=== PATIENT | female | born 1965 | race Caucasian/White ===

== ENCOUNTER 2019-09-17 08:12 | Outpatient (CLI) | payer OTHER, SELFPAY ==
[2019-09-17 08:39] LABS: Alanine Aminotransferase 16 U/L (4-35); Alkaline Phosphatase 58 U/L (38-126); Aspartate Amino Transferase 27 U/L (14-36); Bilirubin,Total 0.5 mg/dL (0.2-1.3); Blood Urea Nitrogen 15 mg/dL (7-17); Calcium 9.2 mg/dL (8.4-10.2); Carbon Dioxide 29 mmol/L (22-30); Chloride 107 mmol/L (98-107); Estimated Glomerular Filt Rate > 60; Glucose 98 mg/dL (65-105); Potassium 4.1 mmol/L (3.4-5.0); Sodium 139 mmol/L (137-145)
[2019-09-17 09:24] LABS: Vitamin D 25 Hydroxy 66.7 ng/mL
== END 2019-09-17 08:13 | disposition home or self-care (01) ==
PROVIDERS: PCP Emergency Medicine; Visit Provider Emergency Medicine
DX: E55.9 Vitamin D deficiency, unspecified (principal); I10 Essential (primary) hypertension
CPT/HCPCS: 36415; 80053; 82306

== ENCOUNTER 2020-03-11 10:38 | Outpatient (CLI) | payer OTHER, SELFPAY ==
--- NOTE | ~2020-03-11 | US_ITS ---
EXAMINATION: US pelvic complete w TV DATE: 03/11/2020 11:29 INDICATION: Postmenopausal bleeding TECHNIQUE: Multiple transabdominal and endovaginal sonographic images of the pelvis were obtained. COMPARISON: 06/07/2011 FINDINGS: The retroflexed uterus measures 9.0 x 4.4 x 6.0 cm. The endometrial complex measures 3-4 mm in thick ness. The right ovary measures 2.5 x 1.5 x 1.4 cm with arterial vascular flow identified on color Dop pler. Complex fluid collection measuring approximately 4.1 x 2.7 x 2.6 cm at the left adnexal region with separate anechoic region by septations measuring up to 2 mm. Discrete left ovary is no t identified. There is small amount of free fluid in the cul-de-sac and left adnexal region. IMPRESSION: 1. Complex cystic lesion at the left adnexa likely representing a hydrosalpinx however differential w ould include cystic ovarian neoplasm either benign or malignant. Recommend pre and postcontrast MRI f or further evaluation. 2. Endometrial complex measures 3-4 mm which is within normal limits. 2. Small amount of nonspecific free fluid in the cul-de-sac and left adnexal region. Reviewed, dictated and finalized at location B. IMPRESSION: 1. Complex cystic lesion at the left adnexa likely representing a hydrosalpinx however differential would include cystic ovarian neoplasm either benign or mal ignant. Recommend pre and postcontrast MRI for further evaluation. 2. Endometrial complex measures 3-4 mm which is within normal limits. 2. Small amount of nonspecific free fluid in the cul-de-sac and left adnexal re gion.
== END 2020-03-11 10:39 | disposition home or self-care (01) ==
PROVIDERS: PCP Emergency Medicine; Visit Provider Obstetrics & Gynecology
DX: N95.0 Postmenopausal bleeding (principal)
CPT/HCPCS: 76830; 76856

== ENCOUNTER 2020-03-25 14:35 | Outpatient (CLI) | payer OTHER, SELFPAY ==
[2020-03-28 05:10] LABS: CA-125 8 U/mL (<35)
== END 2020-03-25 14:36 | disposition home or self-care (01) ==
PROVIDERS: PCP Emergency Medicine; Visit Provider Obstetrics & Gynecology
DX: N94.9 Unspecified condition associated with female genital organs and menstrual cycle (principal)
CPT/HCPCS: 36415; 86304

== ENCOUNTER 2020-04-10 10:02 | Outpatient (CLI) | payer OTHER, SELFPAY ==
--- NOTE | ~2020-04-10 | MM_ITS ---
EXAMINATION: MM screening kathy BI w darcie HISTORY: Screening mammogram, family history of breast cancer in her sister. TECHNIQUE: Craniocaudal and mediolateral oblique 3-D tomosynthesis images were obtained and synthetic 2-D images were generated. CAD analysis was submitted and interpreted. COMPARISON: 04/04/2019, 03/27/2018, 03/24/2017 BREAST PARENCHYMAL COMPOSITION: The breasts are heterogeneously dense, which may obscure small masses . FINDINGS: There is no evidence of suspicious mass, calcification, or architectural distortion to sugg est malignancy in either breast. There has been no suspicious interval change. IMPRESSION: 1. No mammographic evidence of malignancy. 2. Recommend routine screening mammography in one year. BI-RADS Category 1: Negative Reviewed, dictated and finalized at location A. I CUTTER
== END 2020-04-10 10:03 | disposition home or self-care (01) ==
LOC: ANHIMG 10:04
PROVIDERS: PCP Emergency Medicine; Visit Provider Obstetrics & Gynecology
DX: Z12.31 Encounter for screening mammogram for malignant neoplasm of breast (principal)
CPT/HCPCS: 77063; 77067

== ENCOUNTER 2020-06-16 11:01 | Outpatient (CLI) | payer OTHER, SELFPAY ==
--- NOTE | ~2020-06-16 | US_ITS ---
EXAMINATION: US pelvic complete w TV EXAM DATE: 06/16/2020 11:44 INDICATION: N94.9 - Unspecified condition associated with female genital organs and menstrual cycle. Postmenopausal. TECHNIQUE: Pelvic transabdominal and transvaginal sonogram was performed. There are multiple graysca le and Doppler images available for interpretation. Comparison is made to prior examination from 02/26. FINDINGS: Uterus measures about cm, is retroverted with hypoechoic mass measuring 5 cm. In the lowe r urine segmental or cervical region there is hypoechoic masslike region measuring up to 4 cm, could be a fibroid. Endometrial stripe measures 5 mm, within normal limits. There is no free pelvic fluid. Right adnexa: The ovary measures 3.2 x 2.8 x 1.5 cm and is morphologically normal. Ovarian vascular f low confirmed. Left adnexa: There is complex cystic left adnexal region mass measuring up to about 5 cm, but difficu lt to measure due to shape. There are some layering protein suspected within this. Some consideration s include hematosalpinx or endometrioma. Ovarian cancer not excludable. This does not appear signific antly changed. IMPRESSION: 1. Persistent complex cystic left adnexal mass like region. 2. The lower uterine segment/cervical solid mass most likely fibroid. 3. Consider MRI pelvis without and with contrast for further evaluation. Reviewed, dictated and finalized at location A. ETIC COACH
== END 2020-06-16 11:02 | disposition home or self-care (01) ==
PROVIDERS: PCP Emergency Medicine; Visit Provider Obstetrics & Gynecology
DX: R19.09 Other intra-abdominal and pelvic swelling, mass and lump (principal); N85.8 Other specified noninflammatory disorders of uterus
CPT/HCPCS: 76830; 76856

== ENCOUNTER → 2020-07-08 07:54 | Outpatient (CLI) | payer OTHER, SELFPAY ==
--- NOTE | ~2020-07-08 | MR_ITS ---
EXAMINATION: MR pelvis wo/w con INDICATION: Pelvic swelling, mass, and lump TECHNIQUE: Coronal SSFSE ARC, Coronal, Axial, and Sagittal T2 FRFSE small [id number], Coronal 2D F IESTA FatSat, Axial SSFSE BH ARC, Axial 3D DualEcho BH, Axial STIR, Axial DWI b=500, pre and dynamic postcontrast Axial LAVA ARC COMPARISON: Ultrasound, 06/16/2020 CONTRAST: Multihance, 10 cc FINDINGS: There is a 1.3 cm T1 hyperintense, nonenhancing mass of the left adnexa, consistent with a hemorrhagic cyst. A small amount of fluid is present in the cul-de-sac and left adnexa with some locu lations seen. There is no wall enhancement of the loculations. There is a 5.0 x 4.1 cm heterogeneous enhancing mass involving the cervical segment of the uterus to the left of midline which displaces th e endocervical canal to the right. There are no pathologically enlarged pelvic lymph nodes. No dilate d loops of bowel are evident. The visualized osseous structures are unremarkable. IMPRESSION: 1. 1.3 cm hemorrhagic cyst of the left ovary. No suspicious adnexal mass identified. 2. Small amount of loculated fluid in the cul-de-sac and left adnexa. 3. Large fibroid of the cervical segment of the uterus displacing the endocervical canal to the right . Reviewed, dictated and finalized at location A. 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 1.3 cm hemorrhagic cyst of the left ovary. No suspicious adnexal mass identi fied. 2. Small amount of loculated fluid in the cul-de-sac and left adnexa. 3. Large fibroid of the cervical segment of the uterus displacing the endocervi sam canal to the right.
[2020-07-08 08:18] LABS: Estimated Glomerular Filt Rate 58
== END ==
PROVIDERS: Visit Provider Obstetrics & Gynecology
DX: R19.00 Intra-abdominal and pelvic swelling, mass and lump, unspecified site (principal); N83.202 Unspecified ovarian cyst, left side; D25.9 Leiomyoma of uterus, unspecified
CPT/HCPCS: 72197; A9577

== ENCOUNTER 2020-11-17 11:48 | Emergency (ER) | payer OTHER, SELFPAY ==
--- NOTE | ~2020-11-17 | XR_ITS ---
EXAMINATION: XR ankle LT min 3V DATE: 11/17/2020 12:15 INDICATION: Lateral left ankle pain and swelling post fall TECHNIQUE: Anteroposterior, oblique, mortise, and lateral views of the left ankle were obtained. COMPARISON: None. FINDINGS: Alignment is normal. No fracture. Joint spaces are well maintained. Small plantar calcaneal spur. Pr ominent soft tissue swelling about the lateral malleolus. There is also no ankle joint effusion. IMPRESSION: 1. Left ankle joint effusion and lateral sided soft tissue swelling. No acute osseous abnormality. Reviewed, dictated and finalized at location A. IMPRESSION: 1. Left ankle joint effusion and lateral sided soft tissue swelling. No acute o sseous abnormality.
--- NOTE | ~2020-11-17 | XR_ITS ---
EXAMINATION: XR elbow LT min 3V DATE: 11/17/2020 12:15 INDICATION: Nerve pain and tingling at the medial aspect of the distal left humerus. TECHNIQUE: Anteroposterior, two oblique and lateral views of the left elbow were obtained. COMPARISON: None. FINDINGS: Alignment is normal. No fracture identified. Joint spaces are relatively preserved. There are appears be a left elbow joint effusion with anterior sail sign resulting from displacement of the anterior f at pad. No displacement of the posterior fat pad. Soft tissues are otherwise unremarkable. IMPRESSION: 1. Left elbow joint effusion. No evident osseous abnormality. Reviewed, dictated and finalized at location A.
[2020-11-17 11:55] VITALS: BP 148/80; PULSE 85; RESP 16; TEMP 37.8; O2SAT 100
--- NOTE | 2020-11-17 11:57 | WC.ED.TRAUMA ---
HPI - Trauma General Chief Complaint: Extremity Injury, Lower Stated Complaint: lt ankle/lt arm injury Time Seen by Provider: 11/17/20 11:53 Source: patient and RN notes reviewed Mode of arrival: wheelchair History of Present Illness HPI narrative: This is a 54-year-old female that presented to urgent care today with complaints of left ankle pain and left elbow pain status post fall. According to patient she was sitting on the ledge and fell on the left side her body afterwards she started feeling pain to her upper extremity that she describes as a nerve pain. She also notes that her left ankle became swollen and she was unable to bear weight so it. She noted that while she was at home she did ice elevate and take pain medication which did not relieve her symptoms. The patient denies SOB, CP, palpitation, extremity numbness, lightheadedness, dizziness, constipation, diarrhea, chills, or fever. MD complaint: fall (Left lower extremity and upper extremity), injury (Status post fall) and pain Related Data Allergies Allergy/AdvReac Type Severity Reaction Status Date / Time amoxicillin Allergy Unknown Hives Verified 09/01/20 09:02 sulfamethizole Allergy Unknown Hives Verified 09/01/20 09:02 trimethoprim Allergy Unknown Unknown Verified 09/01/20 09:02 Review of Systems Review of Systems: Narrative: A 14 organ system Review of Systems was performed and pertinent positives included in the HPI, otherwise remaining ROS is negative. [facility] Past Medical History Medical History (Updated 11/17/20 @ 12:26 by KALA Oconnor) Hypertension Menopausal state Family History Family History Father Family history of premature coronary heart disease Hypertension, Onset Age: 60 Family history of coronary artery disease, Onset Age: 60 Patient's father is Acute myocardial infarction, Onset Age: 60 Mother Hypertension Family history of osteoporosis Grandparent Family history of coronary artery disease Sibling Family history of malignant neoplasm of breast in first degree relative Family history of osteoporosis Other Asthma Family history of arthritis Family history of thyroid disease Social History Social History Smoking status: Former smoker Second hand tobacco smoke exposure: No Alcohol intake: current Substance use: never Substance use type: does not use Exam Narrative: Exam Narrative: GENERAL: This is a well-nourished, well-developed patient, in no apparent distress. HEAD: normocephalic, atraumatic. EYES: PERRL. Sclera clear/white. Vision is grossly intact. EARS: External ears normal, auditory canals clear and without drainage, TMs normal without perforation. Hearing grossly intact. NOSE: External nose normal with no obvious nasal discharge, nares without redness, no rhinorrhea. THROAT: Mucous membranes moist, posterior pharynx clear. NECK: Neck supple, non-tender without lymphadenopathy, masses or thyromegaly. CARDIOVASCULAR: Regular rate and rhythm without murmurs, gallops, or rubs. RESPIRATORY: Clear to auscultation. Breath sounds equal bilaterally. No wheezes, rales, or rhonchi. GASTROINTESTINAL: Abdomen soft, non-tender, nondistended. Bowel sounds are active. No hepato-splenomegaly, or palpable masses. No guarding. SKIN: warm, intact with no suspicious lesions or rash, good texture and turgor. NEURO: awake, alert, and oriented to person, place and time. There were no obvious focal neurologic abnormalities. Steady gait EXTREMITIES: Normal range of motion with pain to the left ankle. No edema. No calf tenderness. Negative Homans sign bilaterally. Pulses are palpable in upper extremity, positive for sensation, no neurological deficiencies. No open area BACK: Nontender without deformity or crepitance. No flank tenderness. Course Course Emergency Course: Will comp
== END 2020-11-17 12:39 | disposition home or self-care (01) ==
LOC: EXPGLEN 11:53
PROVIDERS: Emergency Provider Nurse Practitioner; PCP Emergency Medicine
DX: S93.402A Sprain of unspecified ligament of left ankle, initial encounter (principal); S96.912A Strain of unspecified muscle and tendon at ankle and foot level, left foot, initial encounter; W19.XXXA Unspecified fall, initial encounter; I10 Essential (primary) hypertension; Z87.891 Personal history of nicotine dependence
CPT/HCPCS: 73080; 73610; 99214; G0463

== ENCOUNTER 2021-06-04 07:41 | Outpatient (CLI) | payer OTHER, SELFPAY ==
--- NOTE | ~2021-06-04 | MM_ITS ---
EXAMINATION: MM screening kathy BI w darcie HISTORY: Screening mammogram, family history of breast cancer in her sister. TECHNIQUE: Craniocaudal and mediolateral oblique 3-D tomosynthesis images were obtained and synthetic 2-D images were generated. CAD analysis was submitted and interpreted. COMPARISON: 03/10/2020, 04/04/2019, 03/27/2018 BREAST PARENCHYMAL COMPOSITION: The breasts are heterogeneously dense, which may obscure small masses . FINDINGS: There is no evidence of suspicious mass, calcification, or architectural distortion to sugg est malignancy in either breast. There has been no suspicious interval change. IMPRESSION: 1. No mammographic evidence of malignancy. 2. Recommend routine screening mammography in one year. BI-RADS Category 1: Negative Reviewed, dictated and finalized at location A. 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
== END 2021-06-04 07:42 | disposition home or self-care (01) ==
LOC: ANHIMG 07:43
PROVIDERS: PCP Emergency Medicine; Visit Provider Obstetrics & Gynecology
DX: Z12.31 Encounter for screening mammogram for malignant neoplasm of breast (principal)
CPT/HCPCS: 77063; 77067

== ENCOUNTER 2021-11-15 03:19 | Day surgery (SDC) | payer OTHER, SELFPAY ==
[2021-10-28 09:30] VITALS: BMI 21.7
--- NOTE | 2021-11-12 13:19 | PM.HPGS ---
History of Present Illness History of Present Illness Consent: Risks, benefits, and alternatives have been discussed and questions answered. Patient agrees to proceed with procedure. Chief complaint: hx of colon polyps, neoplasm screening Narrative: Chichi Eden is a 55 year old female Referred for colon cancer screening. She had an adenoma removed at the time of a screening colonoscopy 5 years ago. Review of Systems Review of Systems: All systems reviewed & are unremarkable except as noted in HPI and below PMFSH Past Medical History Medical History Hypertension Menopausal state Postmenopausal bleeding Surgical History Surgical History History of salpingo-oophorectomy (2010) Left side S/P eye surgery (~1979) Family History Family History Father Family history of premature coronary heart disease Hypertension, Onset Age: 60 Family history of coronary artery disease, Onset Age: 60 Patient's father is Acute myocardial infarction, Onset Age: 60 Depression Anxiety Mother Hypertension Family history of osteoporosis Asthma Grandparent Family history of coronary artery disease paternal grandparent Hypertension maternal grandparent Sibling Family history of malignant neoplasm of breast in first degree relative Family history of osteoporosis Breast cancer Asthma Hypertension Anxiety Depression Thyroid disorder Other Family history of arthritis Family history of thyroid disease Social History Social History Smoking packs per day: 0.5 Smoking cigarettes per day: 10.0 Years smoked: 10 Smoking pack-years: 5.00 Smoking status: Former smoker Second hand tobacco smoke exposure: No Alcohol intake: current Alcohol use details: occasional social Substance use: never Substance use type: does not use Living arrangements: with family Spiritual care concerns: No Meds Home Medications and Allergies Home Medications Medication Instructions Recorded Confirmed Type estradiol 2 mg tablet 1 mg PO DAILY #90 tabs 02/26/21 10/28/21 Rx cholecalciferol (vitamin D3) 50 50 mcg PO DAILY 03/18/21 10/28/21 History mcg (2,000 unit) capsule progesterone micronized 200 mg 200 mg PO ONCE #90 caps 06/07/21 10/28/21 Rx capsule lisinopril 10 mg tablet 10 mg PO DAILY #90 tabs 10/07/21 11/15/21 Rx Allergies Allergy/AdvReac Type Severity Reaction Status Date / Time amoxicillin Allergy Unknown Hives Verified 11/15/21 06:30 sulfamethizole Allergy Unknown Hives Verified 11/15/21 06:30 trimethoprim Allergy Unknown Hives Verified 11/15/21 06:30 Exam Resp: Auscultation: clear to auscultation bilaterally Cardio: Rate: regular rate Rhythm: regular rhythm GI: GI Palp: Yes Soft to palpation and No Tenderness to palpation present (GI) Assessment and Plan Assessment and plan (1) Colon cancer screening: Code(s): Z12.11 - Encounter for screening for malignant neoplasm of colon Status: Acute Assessment and Plan: Colonoscopy with possible biopsy or polypectomy or cautery or injection of substances.
--- NOTE | 2021-11-15 06:28 | WPDANESEPPF ---
Anes - Initial Pre Proc Eval Procedure: Operation Date: 11/15/21 07:30 Proposed Procedures p Screening Colonoscopy - Josh Chi MD Date/Time: 11/15/21 06:28 Surgeon: Josh Chi MD Pre Op Diagnosis: hx of colon polyps, neoplasm screening Patient Data Age: 55 Gender: F Height: 1.65 m Weight: 59.3 kg Allergies Allergy/AdvReac Type Severity Reaction Status Date / Time amoxicillin Allergy Unknown Hives Verified 11/15/21 06:30 sulfamethizole Allergy Unknown Hives Verified 11/15/21 06:30 trimethoprim Allergy Unknown Hives Verified 11/15/21 06:30 Home Medications Medication Instructions Recorded Confirmed Type estradiol 2 mg tablet 1 mg PO DAILY #90 tabs 02/26/21 10/28/21 Rx cholecalciferol (vitamin D3) 50 50 mcg PO DAILY 03/18/21 10/28/21 History mcg (2,000 unit) capsule progesterone micronized 200 mg 200 mg PO ONCE #90 caps 06/07/21 10/28/21 Rx capsule lisinopril 10 mg tablet 10 mg PO DAILY #90 tabs 10/07/21 11/15/21 Rx Patient hx anesthesia problems: none Family hx anesthesia problems: none Results Review: All pre-operative results and documents have been reviewed as part of the pre-operative evaluation. [facility] Past Medical History Medical History Hypertension Menopausal state Postmenopausal bleeding Surgical History Surgical History History of salpingo-oophorectomy (2010) Left side S/P eye surgery (~1979) Family History Family History Father Family history of premature coronary heart disease Hypertension, Onset Age: 60 Family history of coronary artery disease, Onset Age: 60 Patient's father is Acute myocardial infarction, Onset Age: 60 Depression Anxiety Mother Hypertension Family history of osteoporosis Asthma Grandparent Family history of coronary artery disease paternal grandparent Hypertension maternal grandparent Sibling Family history of malignant neoplasm of breast in first degree relative Family history of osteoporosis Breast cancer Asthma Hypertension Anxiety Depression Thyroid disorder Other Family history of arthritis Family history of thyroid disease Social History Social History Smoking packs per day: 0.5 Smoking cigarettes per day: 10.0 Years smoked: 10 Smoking pack-years: 5.00 Smoking status: Former smoker Second hand tobacco smoke exposure: No Alcohol intake: current Alcohol use details: occasional social Substance use: never Substance use type: does not use Living arrangements: with family Spiritual care concerns: No Anes - Eval Final PreProcedure Day of Procedure 11/15/21 06:28 Patient weight: normal Heart: regular rate and rhythm Lungs: clear to auscultation Airway: Mallampati scale class II Neurological: alert and oriented Last oral intake: >/= 8 hours ASA classification: II Emergent: no Anesthetic plan: proceed Anesthesia type and monitoring: general ETT and standard monitoring Results Review: All pre-operative results and documents have been reviewed as part of the pre-operative evaluation. Informed Consent: The patient's anesthetic plan and its attendant risks and benefits were discussed with the patient/family/POA. Questions were solicited and answers provided to the satisfaction of the patient/family/POA.
[2021-11-15 06:31] VITALS: BP 134/93; PULSE 78; RESP 20; TEMP 36.8; O2SAT 98
[2021-11-15] MEDS: LACTATED RINGERS 1,000 ML 150 ML IV CONT (06:42)
[2021-11-15] MEDS: SIMETHICONE ORAL SUSPENSION 20 MG/0.3 ML 30 ML BOTTLE 0.6 ML IRRIGATION (07:39)
[2021-11-15 07:46] VITALS: BP 102/69; PULSE 46; RESP 17; O2SAT 100
[2021-11-15 07:56] VITALS: BP 119/85; PULSE 59; RESP 17; O2SAT 100
[2021-11-15 08:05] VITALS: BP 130/84; PULSE 56; RESP 17; O2SAT 100
== END 2021-11-15 08:11 | disposition home or self-care (01) ==
PROVIDERS: PCP Family Medicine; Visit Provider Internal Medicine Gastroenterology
PROC: 0DJD8ZZ Inspection of Lower Intestinal Tract, Via Natural or Artificial Opening Endoscopic (ICD-10-PCS; CPT 45378; principal; 2021-11-15 07:30)
DX: Z12.11 Encounter for screening for malignant neoplasm of colon (principal); Z86.010 Personal history of colon polyps; I10 Essential (primary) hypertension; Z87.891 Personal history of nicotine dependence
CPT/HCPCS: 45378; J2704; J7120

== ENCOUNTER 2022-08-02 14:21 | Outpatient (CLI) | payer OTHER, SELFPAY ==
--- NOTE | ~2022-08-02 | MM_ITS ---
EXAMINATION: MM screening kathy BI w darcie HISTORY: Screening mammogram, family history of breast cancer in her sister. TECHNIQUE: Craniocaudal and mediolateral oblique 3-D tomosynthesis images were obtained and synthetic 2-D images were generated. CAD analysis was submitted and interpreted. COMPARISON: 06/04/2021, 04/10/2020, 04/04/2019 BREAST PARENCHYMAL COMPOSITION: The breasts are heterogeneously dense, which may obscure small masses . FINDINGS: RIGHT BREAST: No suspicious mass, calcification, or architectural distortion are identified to sugges t malignancy. There has been no suspicious interval change. LEFT BREAST: There is focal asymmetry in the posterior third of the slightly upper, slightly inner br east. IMPRESSION: 1. Left breast focal asymmetry. 2. Additional mammographic views and possible breast ultrasound are recommended. BI-RADS Category 0: Incomplete: Needs additional imaging evaluation. Reviewed, dictated and finalized at location A. [employer] IMPRESSION: 1. Left breast focal asymmetry. 2. Additional mammographic views and possible breast ultrasound are recommended . BI-RADS Category 0: Incomplete: Needs additional imaging evaluation.
== END 2022-08-02 14:22 | disposition home or self-care (01) ==
PROVIDERS: PCP Family Medicine; Visit Provider Obstetrics & Gynecology
DX: Z12.31 Encounter for screening mammogram for malignant neoplasm of breast (principal); R92.8 Other abnormal and inconclusive findings on diagnostic imaging of breast
CPT/HCPCS: 77063; 77067

== ENCOUNTER 2022-08-23 11:10 | Outpatient (CLI) | payer OTHER, SELFPAY ==
--- NOTE | ~2022-08-23 | MMUS_ITS ---
EXAMINATION: MM diagnostic kathy LT w darcie, US breast LT complete HISTORY: Follow-up left breast asymmetries TECHNIQUE: Additional 3-D tomosynthesis images of the left breast were performed and synthetic 2-D im ages were generated. CAD analysis was submitted and interpreted. High resolution complete left breast ultrasound was performed. COMPARISON: 03/24/2017 BREAST PARENCHYMAL COMPOSITION: The breasts are extremely dense, which lowers the sensitivity of mamm ography FINDINGS: MAMMOGRAPHIC FINDINGS: The asymmetries in the left breast seen on prior screening mammogram are not apparent with spot compr ession or mediolateral views, compatible with superimposed fibroglandular tissue. ULTRASOUND: Complete US of all 4 quadrants of the left breast and retroareolar region was reviewed. There are mul tiple cysts of the left breast. At 2:00, 1 cm from the nipple there is a 4 mm cyst. At 4:00 there is a 3 mm cyst. At 7:00, 2 cm from the nipple there is a 7 mm cyst. No suspicious left breast masses are identified to suggest malignancy. IMPRESSION: 1. No evidence for malignancy in the left breast. Benign findings. 2. Routine yearly screening mammogram and regular clinical breast examination are recommended. BI-RADS Category 2: Benign finding(s). Reviewed, dictated and finalized at location A. IMPRESSION: 1. No evidence for malignancy in the left breast. Benign findings. 2. Routine yearly screening mammogram and regular clinical breast examination a re recommended. BI-RADS Category 2: Benign finding(s).
== END 2022-08-23 11:11 | disposition home or self-care (01) ==
PROVIDERS: PCP Family Medicine; Visit Provider Obstetrics & Gynecology
DX: R92.8 Other abnormal and inconclusive findings on diagnostic imaging of breast (principal)
CPT/HCPCS: 76641; 77061; 77065; G0279

== ENCOUNTER 2023-11-14 09:54 | Outpatient (CLI) | payer OTHER, SELFPAY ==
--- NOTE | ~2023-11-14 | MM_ITS ---
EXAMINATION: MM screening kathy BI w darcie HISTORY: Screening TECHNIQUE: Craniocaudal and mediolateral oblique 3-D tomosynthesis images were obtained and synthetic 2-D images were generated. CAD analysis was submitted and interpreted. COMPARISON: Comparison to multiple prior studies sequentially, with oldest reviewed study dated 03/31. BREAST PARENCHYMAL COMPOSITION: Dense: The breasts are extremely dense, which lowers the sensitivity of mammography. FINDINGS: There is no evidence of suspicious mass, calcification, or architectural distortion to sugg est malignancy in either breast. There has been no suspicious interval change. IMPRESSION: 1. No mammographic evidence of malignancy. 2. Recommend routine screening mammography in one year. BI-RADS Category 1: Negative Reviewed, dictated and finalized at location B.
== END 2023-11-14 09:55 | disposition home or self-care (01) ==
LOC: ANHIMG 09:56
PROVIDERS: PCP Family Medicine; Visit Provider Obstetrics & Gynecology
DX: Z12.31 Encounter for screening mammogram for malignant neoplasm of breast (principal)
CPT/HCPCS: 77063; 77067

== ENCOUNTER 2024-11-26 15:51 | Outpatient (CLI) | payer OTHER, SELFPAY ==
--- NOTE | ~2024-11-26 | MM_ITS ---
EXAMINATION: MM screening kathy BI w darcie HISTORY: Screening mammogram, family history of breast cancer in her sister. TECHNIQUE: Craniocaudal and mediolateral oblique 3-D tomosynthesis images were obtained and synthetic 2-D images were generated. CAD analysis was submitted and interpreted. COMPARISON: 11/14/2023, 08/02/2022, 06/04/2021, 04/10/2020 BREAST PARENCHYMAL COMPOSITION:Dense: The breasts are extremely dense, which lowers the sensitivity o f mammography. FINDINGS: No suspicious mass, calcification, or architectural distortion are identified in either matthew ast to suggest malignancy. There has been no suspicious interval change. IMPRESSION: No mammographic evidence of malignancy. Recommend routine screening mammography in one year. BI-RADS Category 1: Negative Reviewed, dictated and finalized at location .
--- OUTSIDE RECORDS SUMMARY | 2024-11-26 16:04 | XMS_ITS | Clinical Summary ---
Author Organization [facility] Address [facility] [place] [address] Care Team Providers Care Employment Officer Name Role Phone Alie Nguyễn MD Primary Care Provider Allergies Active Allergy Reactions Criticality Noted Date Comments Amoxicillin Hives Medium 06/13/2018 Sulfamethoxazole-Trimethoprim Rash Medium 2019 Medications estradioL (ESTRACE) 1 mg tablet 1 tablet (1 mg total) 1 05/13/2018 Active hydroCHLOROthia zide (HYDRODIURIL) 12.5 mg tablet TK 1 T PO QD 2 04/27/2018 A ctive lisinopril (PRINIVIL,ZESTR IL) 10 mg tablet TK 1 T PO QD 2 05/11/2018 Active losartan (COZAAR) 25 mg tablet TK 1 T PO QD 2 05/08/2018 Active progesterone (PROMETRIUM) 200 mg capsule 1 04/27/2018 Acti ve calcium-vitamin D3-vitamin K 500-100-40 mg-unit-mcg tablet,chewable Take by mouth daily. 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 Family History Medical History Relation Name Comments Osteoporosis Mother Osteoporosis Other Breast cancer Sister Adenocarcinoma of breast - (Added by TW Conv) Broken bones Sister wrist Osteoporosis Sister Relation Name Status Comments Mother Other Sister Social History Tobacco Use Types Packs/Day Years Used Date Smoking Tobacco: Former Cigarettes Q uit: 1992 Smokeless Tobacco: Never Personal Safety Answer Date Recorded Getting School Help Needed Not on file 08/11 Comments Unknown Sex and Gender Information Value Date Recorded Sex Assigned at Not on file Legal Sex Female 4:43 AM 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 Gender Identity Female 07/10/2019 12:11 PM 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 Sexual Orientation Straight 07/10/2019 12 :11 PM 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 Obstetrics History Last Filed Vital Signs Vital Sign Reading Time Taken Comments Blood Pressure - - Pulse - - Temperature - - Respiratory Rate - - Oxygen Saturation - - Inhaled Oxygen Concentration - - Weight 58.7 kg (129 lb 6.4 oz) 12/20/2022 9:42 A M CDT Height 164.5 cm (5' 4.75) 12/20/2022 9:42 AM CD T Body Mass Index 21.7 12/20/2022 9:42 AM CDT Plan of Treatment Health Maintenance Due Date Last Done Comments Breast Cancer Screening-Mammogram 1964 Cervical Cancer Screening 1964 Colon Cancer Screening-Colonoscopy 1964 Depression Screening 1964 Hepatitis C Screening 1964 DTaP/Tdap/Td Vaccine (1 - Tdap) 12/30/1975 Hepatitis B Screening 1982 Regular Well Visit/Exam 18-64 1982 Zoster Vaccine (1 of 2) 2014 Influenza Vaccine (Season Ended) 2025 Pneumococcal vaccine <65 Aged Out No longer eligible based on patient's age to complete [place] [id number] Care Teams Employment Officer Relationship Specialty Start Date End Date Alie Nguyễn MD PCP - General Family Practice 12/20/22
--- OUTSIDE RECORDS SUMMARY | 2024-11-26 16:04 | XMS_ITS | Referral Summary ---
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 Social History Tobacco Use Types Packs/Day Years Used Date Smoking Tobacco: Former Cigarettes Q uit: 1992 Smokeless Tobacco: Never Personal Safety Answer Date Recorded Getting School Help Needed Not on file 08/11 Comments Unknown Sex and Gender Information Value Date Recorded Sex Assigned at Not on file Legal Sex Female 4:43 AM SUPERVISOR PURIFICATION Gender Identity Female 07/10/2019 12:11 PM SUPERVISOR PURIFICATION Sexual Orientation Straight 07/10/2019 12 :11 PM SUPERVISOR PURIFICATION Last Filed Vital Signs Vital Sign Reading [...] 12/20/2022 9:42 AM CDT Plan of Treatment Not on file Insurance [employer] Care Teams Aircraft Cleaner Relationship Specialty Start Date End Date Alie Nguyễn MD PCP - General Family Practice 12/20/22
== END 2024-11-26 15:52 | disposition home or self-care (01) ==
PROVIDERS: PCP Family Medicine; Visit Provider Obstetrics & Gynecology
DX: Z12.31 Encounter for screening mammogram for malignant neoplasm of breast (principal)
CPT/HCPCS: 77063; 77067